=== PATIENT | female | born 1945 | race Caucasian/White ===

== ENCOUNTER 2017-03-20 16:53 | Emergency (ER) | payer MEDICARE, BC ==
[2017-03-20 17:23] VITALS: BP 213/94
--- NOTE | 2017-03-20 17:56 | UC ---
Respiratory Complaint HPI - HPI Summary HPI Summary: The patient comes in today for: 1. Upper respiratory symptoms: Onset: one week ago. Palliative/provocative: Blowing her nose makes her sinus congestion better. Quality: No pain. Region: Upper respiratory Severity: 0/10 Time: Comes and goes. Associated symptoms: Rhinitis: But, it is clear. Sinus congestion: clears with blowing nose. Cough: Productive of clear phlegm, but that has gotten better. Fever: She had this before, last temperature taken today was 100.6 around 2: 15 PM. She took ibuprofen 200 mg at that time. At about 4:15 PM, her temperature was 101.6. This is the highest it has been. Vomiting: none. Diarrhea: None. Body aches: None new. Dysuria: None. * - History of Current Complaint Chief Complaint: UCRespiratory Stated Complaint: FEVER,COUGH,COLD Time Seen by Provider: 03/20/17 17:48 Hx Obtained From: Patient - Allergies/Home Medications Allergies/Adverse Reactions: Allergies Allergy/AdvReac Type Severity Reaction Status Date / Time Codeine Allergy Unknown Verified 02/15/15 22:28 Reaction Details Eggs or Egg-derived Products Allergy Unknown Verified 02/15/15 22:28 Reaction Details Gluten Meal Allergy Unknown Verified 03/20/17 17:24 Reaction Details Meperidine [From Demerol HCl] Allergy Unknown Verified 11/12/15 16:19 Reaction Details Molds & Smuts Allergy Unknown Verified 11/12/15 16:19 Reaction Details Oxycodone Allergy Unknown Verified 11/12/15 16:19 Reaction Details Penicillins Allergy Unknown Verified 02/15/15 22:28 Reaction Details Propoxyphene [From Darvon] Allergy Unknown Verified 11/12/15 16:19 Reaction Details Sulfa Antibiotics Allergy Unknown Verified 02/15/15 22:28 Reaction Details Tramadol Allergy Unknown Verified 11/12/15 16:19 Reaction Details Home Medications: Home Medications Ibuprofen [Advil] 200 mg PO 03/20/17 [History] Magnesium 500 mg PO TID 03/20/17 [History Confirmed 03/20/17] PMH/Surg Hx/FS Hx/Imm Hx Endocrine History Of: Denies: Diabetes, Thyroid Disease, Hyperthyroidism, Hypothyroidism, Dyslipidemia Cardiovascular History Of: Denies: Cardiac Disorders, Hypertension, Pacemaker/ICD, Myocardial Infarction , Congestive Heart Failure, Atrial Fibrillation, Deep Vein Thrombosis, Bleeding Disorders Respiratory History Of: Denies: COPD, Asthma, Bronchitis, Pneumonia, Pulmonary Embolism GI/ History Of: Denies: Gastroesophageal Reflux, Ulcer, Gastrointestinal Bleed, Gall Bladder Disease, Kidney Stones, Diverticulitis, Renal Disease, Urosepsis Neurological History Of: Reports: Migraine - reports hx of migraines from mold spores, states no longer gets migraines Denies: TIA, CVA, Dementia, Seizures Psychological History Of: Reports: Anxiety - On no medications., Depression Denies: Bipolar Disorder, Schizophrenia, Post Traumatic Stress Disorder Cancer History Of: Denies: Lung Cancer, Colorectal Cancer, Breast Cancer, Prostate Cancer, Cervical Cancer Other History Of: Negative For: HIV, Hepatitis B, Hepatitis C, Anticoagulant Therapy - Surgical History Surgical History: Yes Surgery Procedure, Year, and Place: Ovarian cyst, hx of wisdom teeth removal,hx of sebaceous cyst from ear lobe removed. TONSILECTOMY - Family History Known Family History: Negative: Cardiac Disease, Hypertension - Social History Occupation: Retired Alcohol Use: None Substance Use Type: None Smoking Status (MU): Former Smoker - Immunization History Most Recent Influenza Vaccination: never Most Recent Tetanus Shot: 1984 Most Recent Pneumonia Vaccination: never Review of Systems Constitutional: Fever Skin: Negative Eyes: Negative ENT: Nasal Discharge Respiratory: Cough Cardiovascular: Negative Gastrointestinal: Negative Genitourinary: Negative All Other Systems Reviewed And Are Negative: Yes Physical Exam Triage Information Reviewed: Yes Appearance: Well-Appearing, No Pain Distress, Well-Nourished Vital Signs: Initial Vital Signs Temp 99.1 F 03/20/17 17:19 Pulse 82 03/20/17 17:19 Resp 18 03/20/17 17:19 BP 213/94 03/20/17 17:19 Pulse Ox 99 03/20/17 17:19 Vital Signs Reviewed: Yes Eyes: Positive: Conjunctiva Clear. Negative: Discharge ENT: Positive: Hearing grossly normal, Other: - She has bilateral hearing aids. However, there is no erythema or edema of the pinna.. Negative: Pharyngeal erythema, Nasal congestion, Nasal drainage, Tonsillar swelling, Tonsillar exudate Dental: Negative: Gross Decay/Caries @, Dental Fracture @ Neck: Positive: Supple, Nontender, No Lymphadenopathy. Negative: Nuchal Rigidity Respiratory: Positive: Lungs clear, No respiratory distress, No accessory muscle use. Negative: Rhonchi, Wheezing Cardiovascular: Positive: RRR, No Murmur Abdomen Description: Positive: Nontender, No Organomegaly, Soft. Negative: Distended, Guarding Musculoskeletal: Positive: Strength Intact, ROM Intact, No Edema Neurological: Positive: Alert, Muscle Tone Normal Psychological: Positive: Age Appropriate Behavior, Consolable Skin: Negative: rashes, breakdown UC Diagnostic Evaluation - Laboratory O2 Sat by Pulse Oximetry: 99 Respiratory Course/Dx - Differential Dx/Diagnosis Differential Diagnosis/HQI/PQRI: Bronchitis, Laryngitis, Sinusitis Provider Diagnoses: Upper respiratory infection. Viral syndrome Discharge - Discharge Plan Condition: Stable Disposition: HOME Patient Education Materials: Upper Respiratory Infection (ED), Viral Syndrome ( ED) Referrals: Mazin Yung MD [Primary Care Provider] - 1 Week (Please see your primary care provider in about a week to see how well you are doing. If you don't have a primary care provider, please contact the physician referral service. If you can't get in timely, please you may come back to see us until you can. If you get worse, please be seen sooner by us or the ER.)
== END 2017-03-20 18:25 | disposition home or self-care (01) ==
LOC: UCEAST 16:53
DX: J06.9 Acute upper respiratory infection, unspecified (principal); B34.9 Viral infection, unspecified; G43.909 Migraine, unspecified, not intractable, without status migrainosus; F41.9 Anxiety disorder, unspecified; F32.9 Major depressive disorder, single episode, unspecified; Z88.5 Allergy status to narcotic agent; Z88.0 Allergy status to penicillin; Z88.2 Allergy status to sulfonamides; Z91.012 Allergy to eggs
CPT/HCPCS: 99211; G0463

== ENCOUNTER 2021-05-09 09:43 | Inpatient (IN) ==
[2021-05-09] MEDS ORDERED: fentaNYL 100 mcg/2 ml 50 MCG/ML VIAL ONE (10:15)
[2021-05-09] MEDS ORDERED: Midazolam 5 mg/ml concentrated 5 mg/ml 1 ml VIAL ONE (10:19)
[2021-05-09 10:41] LABS: ALT 27 U/L (7-52); AST 27 U/L (13-39); Albumin 3.9 g/dL (3.2-5.2); Albumin/Globulin Ratio 1.4 (1-3); Alkaline Phosphatase 81 U/L (35-149); Blood Urea Nitrogen 17 mg/dL (6-24); CO2 Carbon Dioxide 24 mmol/L (22-32); Calcium 9.1 mg/dL (8.6-10.3); Chloride 91 mmol/L (101-111); EGFR African American 102.1 (>60); EGFR Non-African American 84.4 (>60); Globulin 2.8 g/dL (2-4); Glucose 136 mg/dL (70-100); Magnesium 2.1 mg/dL (1.9-2.7); Sodium 121 mmol/L (135-145); Total Protein 6.7 g/dL (6.4-8.9)
[2021-05-09 10:42] LABS: Troponin I 0.49 ng/mL (<0.03)
[2021-05-09 10:43] LABS: Anion Gap 6 mmol/L (2-11); Potassium 5.5 mmol/L (3.5-5.0)
[2021-05-09 11:00] LABS: Hematocrit 35 % (35-47); Hemoglobin 12.1 g/dL (12.0-16.0); Mean Corpuscular HGB Conc 34 g/dL (31-36); Mean Corpuscular Hemoglobin 28 pg (27-31); Mean Corpuscular Volume 82 fL (80-97); Mean Platelet Volume 6.9 fL (7.4-10.4); Platelet Count 229 10^3/uL (150-450); Red Blood Count 4.31 10^6 /uL (3.70-4.87); Red Cell Distribution Width 17 % (10-15); White Blood Count 8.1 10^3/uL (3.5-10.8)
[2021-05-09] MEDS ORDERED: Dextrose 50% Syringe 50 ml 25 GM/50 ML SYRINGE IV PUSH ONE (11:05)
[2021-05-09] MEDS ORDERED: CALCIUM GLUCONATE 1GM/50ML NS 1 GM/50 ML BAG IV ONE (11:05)
[2021-05-09] MEDS ORDERED: Albuterol 2.5mg/3 ml (0.083%) NEB.SOLN INH ONE (11:05)
[2021-05-09] MEDS ORDERED: Sodium Polystyrene ORAL.SUSP 15 GM/60 ML BTL PO ONE (11:21)
[2021-05-09] MEDS ORDERED: Midazolam 5 mg/5 ml VIAL 1 mg/ml 5 ml VIAL (5 mg) IV SLOW PU ONE (11:42)
[2021-05-09] MEDS ORDERED: fentaNYL 100 mcg/2 ml 50 MCG/ML VIAL IV SLOW PU ONE (11:42)
[2021-05-09 11:53] LABS: ABS Lymphocytes 6.2 10^3/ul (1.0-4.8); ABS Monocytes 0.5 10^3/ul (0-0.8); ABS Neutrophils 1.4 10^3/ul (1.5-7.7); Eosinophil % 0.2 %; Lymphocyte % 75.9 %; Nucleated Red Blood Cells % 0.3
[2021-05-09 16:50] LABS: Potassium 4.3 mmol/L (3.5-5.0); Troponin I 0.33 ng/mL (<0.03)
[2021-05-09] MEDS ORDERED: Al Hydrox/Mg Hydrox/Simet LIQ 30 ML UDC PO PRN (17:28)
[2021-05-09] MEDS ORDERED: Senna TAB 8.6 mg TAB PO PRN (17:37)
[2021-05-09] MEDS ORDERED: Morphine ORAL CONCENTRATE 5 MG/0.25 ML ORAL.SYRIN PO PRN (17:37)
[2021-05-14] MEDS: Polyethylene Glycol 3350 17 GM PACKET PO PRN (08:42)
[2021-05-14] MEDS ORDERED: Morphine ORAL CONCENTRATE 5 MG/0.25 ML ORAL.SYRIN PO PRN (16:34)
[2021-05-15] MEDS: Polyethylene Glycol 3350 17 GM PACKET PO PRN (08:14)
[2021-05-15] MEDS: [UNRECOGNIZED DRUG - REMARK] PO SCH (08:17)
[2021-05-15 10:42] VITALS: BP 196/48
[2021-05-16] MEDS: [UNRECOGNIZED DRUG - REMARK] PO SCH (10:17)
== END 2021-05-16 12:15 | disposition swing bed (61) | DRG 309 ==
LOC: ED 09:43 → MED 17:28
PROVIDERS: ADMIT Internal Medicine; ATTEND Internal Medicine

== ENCOUNTER 2021-05-16 12:12 | Inpatient (IN) ==
[2021-05-16] MEDS: Morphine ORAL CONCENTRATE 5 MG/0.25 ML ORAL.SYRIN PO PRN (20:12)
[2021-05-17 15:58] VITALS: BP 140/60
[2021-05-17] MEDS: Morphine ORAL CONCENTRATE 5 MG/0.25 ML ORAL.SYRIN PO PRN (18:40)
[2021-05-18] MEDS: Morphine ORAL CONCENTRATE 5 MG/0.25 ML ORAL.SYRIN PO PRN ×3 (16:55→21:01)
[2021-05-19] MEDS: Morphine ORAL CONCENTRATE 5 MG/0.25 ML ORAL.SYRIN PO PRN ×3 (00:38→21:29)
[2021-05-19] MEDS: Al Hydrox/Mg Hydrox/Simet LIQ 30 ML UDC PO PRN ×2 (00:49→13:43)
[2021-05-19] MEDS: Polyethylene Glycol 3350 17 GM PACKET PO PRN (13:43)
[2021-05-20] MEDS: Morphine ORAL CONCENTRATE 5 MG/0.25 ML ORAL.SYRIN PO PRN ×3 (07:54→22:15)
[2021-05-21] MEDS: Morphine ORAL CONCENTRATE 5 MG/0.25 ML ORAL.SYRIN PO PRN (06:24)
[2021-05-21] MEDS: Senna TAB 8.6 mg TAB PO PRN (14:28)
[2021-05-24] MEDS: Lidocaine PATCH 5% PATCH TRANSDERM SCH (17:09)
[2021-05-24] MEDS: Lidocaine Patch REMOVE PATCH PATCH OFF SCH (21:49)
[2021-05-24] MEDS: Morphine ORAL CONCENTRATE 5 MG/0.25 ML ORAL.SYRIN PO PRN (22:06)
[2021-05-25] MEDS ORDERED: Lidocaine Patch REMOVE PATCH PATCH OFF ONE (05:00)
[2021-05-25] MEDS: Lidocaine PATCH 5% PATCH TRANSDERM SCH (09:38)
[2021-05-25] MEDS: Lidocaine Patch REMOVE PATCH PATCH OFF SCH (21:07)
[2021-05-26] MEDS: Morphine ORAL CONCENTRATE 5 MG/0.25 ML ORAL.SYRIN PO PRN (01:50)
[2021-05-26] MEDS: Lidocaine PATCH 5% PATCH TRANSDERM SCH (08:03)
[2021-05-26] MEDS: Senna TAB 8.6 mg TAB PO PRN (08:03)
[2021-05-27] MEDS: Lidocaine Patch REMOVE PATCH PATCH OFF SCH ×2 (00:16→22:29)
[2021-05-27] MEDS: Lidocaine PATCH 5% PATCH TRANSDERM SCH (07:43)
[2021-05-28] MEDS: Lidocaine PATCH 5% PATCH TRANSDERM SCH (08:00)
[2021-05-28] MEDS: Lidocaine Patch REMOVE PATCH PATCH OFF SCH (20:26)
[2021-05-29] MEDS: Lidocaine PATCH 5% PATCH TRANSDERM SCH (07:24)
[2021-05-29] MEDS: Lidocaine Patch REMOVE PATCH PATCH OFF SCH (19:49)
[2021-05-30] MEDS: Lidocaine PATCH 5% PATCH TRANSDERM SCH (07:48)
[2021-05-30] MEDS: Lidocaine Patch REMOVE PATCH PATCH OFF SCH (22:00)
[2021-05-31] MEDS: Lidocaine PATCH 5% PATCH TRANSDERM SCH (10:13)
[2021-06-01] MEDS: Lidocaine Patch REMOVE PATCH PATCH OFF SCH ×2 (02:55→22:48)
[2021-06-01] MEDS: Lidocaine PATCH 5% PATCH TRANSDERM SCH (09:45)
[2021-06-02] MEDS: Lidocaine PATCH 5% PATCH TRANSDERM SCH (09:16)
[2021-06-02] MEDS: Lidocaine Patch REMOVE PATCH PATCH OFF SCH (22:03)
[2021-06-03] MEDS: Lidocaine PATCH 5% PATCH TRANSDERM SCH (08:04)
[2021-06-03] MEDS: Lidocaine Patch REMOVE PATCH PATCH OFF SCH (20:44)
[2021-06-04] MEDS: Lidocaine PATCH 5% PATCH TRANSDERM SCH (09:45)
[2021-06-04] MEDS: Senna TAB 8.6 mg TAB PO PRN (17:27)
[2021-06-04] MEDS: Lidocaine Patch REMOVE PATCH PATCH OFF SCH (20:12)
[2021-06-04] MEDS: Morphine ORAL CONCENTRATE 5 MG/0.25 ML ORAL.SYRIN PO PRN (22:54)
[2021-06-05] MEDS: Lidocaine PATCH 5% PATCH TRANSDERM SCH (09:58)
[2021-06-05] MEDS: Lidocaine Patch REMOVE PATCH PATCH OFF SCH (20:29)
[2021-06-06] MEDS: Morphine ORAL CONCENTRATE 5 MG/0.25 ML ORAL.SYRIN PO PRN (03:23)
[2021-06-06] MEDS: Lidocaine PATCH 5% PATCH TRANSDERM SCH (09:47)
[2021-06-06] MEDS: Lidocaine Patch REMOVE PATCH PATCH OFF SCH (21:12)
[2021-06-07] MEDS: Lidocaine PATCH 5% PATCH TRANSDERM SCH (09:48)
[2021-06-07] MEDS: Lidocaine Patch REMOVE PATCH PATCH OFF SCH (21:49)
[2021-06-08] MEDS: Lidocaine PATCH 5% PATCH TRANSDERM SCH (09:00)
[2021-06-08 15:20] LABS: Urine Appearance Clear; Urine Bilirubin Negative (Negative); Urine Blood Negative (Negative); Urine Color Yellow; Urine Glucose Negative (Negative); Urine Ketones 1+ (Negative); Urine Nitrite Negative (Negative); Urine Protein 2+(100 mg/dL) (Negative); Urine Specific Gravity 1.012 (1.002-1.030); Urine Urobilinogen Negative (Negative)
[2021-06-08 15:24] LABS: Urine Bacteria Absent (Absent); Urine Red Blood Cell 1+(3-5/hpf) (Absent); Urine Squamous Epithelial Cell Present (Absent); Urine White Blood Cell Trace(0-5/hpf) (Absent)
[2021-06-08] MEDS: Morphine ORAL CONCENTRATE 5 MG/0.25 ML ORAL.SYRIN PO PRN (16:13)
[2021-06-08] MEDS: Polyethylene Glycol 3350 17 GM PACKET PO PRN (18:18)
[2021-06-08] MEDS: Senna TAB 8.6 mg TAB PO PRN (21:45)
[2021-06-08] MEDS: Lidocaine Patch REMOVE PATCH PATCH OFF SCH (21:49)
[2021-06-09] MEDS: Senna TAB 8.6 mg TAB PO PRN (10:36)
[2021-06-09] MEDS: Lidocaine PATCH 5% PATCH TRANSDERM SCH (10:37)
[2021-06-09] MEDS: Morphine ORAL CONCENTRATE 5 MG/0.25 ML ORAL.SYRIN PO PRN ×2 (10:38→17:58)
[2021-06-10] MEDS: Lidocaine Patch REMOVE PATCH PATCH OFF SCH ×2 (01:43→21:12)
[2021-06-10] MEDS: Lidocaine PATCH 5% PATCH TRANSDERM SCH (08:40)
[2021-06-11] MEDS: Lidocaine PATCH 5% PATCH TRANSDERM SCH (08:59)
[2021-06-11] MEDS: Morphine ORAL CONCENTRATE 5 MG/0.25 ML ORAL.SYRIN PO PRN ×2 (13:11→21:02)
[2021-06-11] MEDS: Lidocaine Patch REMOVE PATCH PATCH OFF SCH (21:16)
[2021-06-12] MEDS: Lidocaine PATCH 5% PATCH TRANSDERM SCH (08:34)
[2021-06-12] MEDS: Morphine ORAL CONCENTRATE 5 MG/0.25 ML ORAL.SYRIN PO PRN ×2 (11:22→13:27)
== END 2021-06-12 14:20 | disposition home or self-care (01) | DRG 65 ==
LOC: MED 13:42
PROVIDERS: ADMIT Internal Medicine; ATTEND Hospitalist

== ENCOUNTER 2021-06-23 18:38 | Inpatient (IN) ==
[2021-06-23 19:22] LABS: Hematocrit 44 % (35-47); Mean Corpuscular HGB Conc 32 g/dL (31-36); Mean Corpuscular Hemoglobin 27 pg (27-31); Mean Corpuscular Volume 84 fL (80-97); Mean Platelet Volume 6.8 fL (7.4-10.4); Platelet Count 572 10^3/uL (150-450); Red Cell Distribution Width 20 % (10-15); White Blood Count 34.6 10^3/uL (3.5-10.8)
[2021-06-23 19:34] LABS: Albumin 3.3 g/dL (3.2-5.2); CO2 Carbon Dioxide 16 mmol/L (22-32); Calcium 8.9 mg/dL (8.6-10.3); Chloride 86 mmol/L (101-111); Magnesium 3.1 mg/dL (1.9-2.7)
[2021-06-23] MEDS ORDERED: NS 0.9% 1000 ml BAG 1,000 ML IV ONE (19:36)
[2021-06-23 19:40] LABS: ALT 13 U/L (7-52); Albumin/Globulin Ratio 1.4 (1-3); Alkaline Phosphatase 66 U/L (35-149); Blood Urea Nitrogen 18 mg/dL (6-24); EGFR African American 45.5 (>60); EGFR Non-African American 37.6 (>60); Globulin 2.3 g/dL (2-4); Glucose 185 mg/dL (70-100); Total Protein 5.6 g/dL (6.4-8.9)
[2021-06-23 19:44] LABS: AST 22 U/L (13-39); Potassium 4.9 mmol/L (3.5-5.0)
[2021-06-23 19:49] LABS: Anion Gap 16 mmol/L (2-11); Sodium 118 mmol/L (135-145); Troponin I 0.04 ng/mL (<0.03)
[2021-06-23 20:17] LABS: ABS Basophils 0.1 10^3/ul (0-0.2); ABS Lymphocytes 13.7 10^3/ul (1.0-4.8); ABS Monocytes 0.4 10^3/ul (0-0.8); ABS Neutrophils 20.4 10^3/ul (1.5-7.7); ABS Nucleated RBC 0.1 10^3/ul; Lymphocyte % 39.6 %; Nucleated Red Blood Cells % 0.2
[2021-06-23] MEDS ORDERED: Iodixanol (CONTRAST) 320 MG/ML 100 ML SDV IV ONE (20:18)
[2021-06-23 20:25] LABS: TSH Ultra Thyroid Stim Horm 5.45 mcIU/mL (0.34-5.60)
[2021-06-23] MEDS ORDERED: Piperacillin/Tazobac ADVAN 3.375 GM in NS 0.9% 100 ml BAG 100 ML IVPB ONE (22:05)
[2021-06-23] MEDS ORDERED: Lactated Ringers 1000 ml BAG 1,000 ML IV SCH (23:00)
[2021-06-23] MEDS ORDERED: Ondansetron 4 mg VIAL 2 MG/ML 2 ml VIAL IV PRN (23:28)
[2021-06-23] MEDS ORDERED: Zosyn per Pharmacy NOTE FOLLOW UP SCH (23:45)
[2021-06-23 23:49] LABS: Urine Appearance Cloudy; Urine Bilirubin Negative (Negative); Urine Blood 2+ (Negative); Urine Color Yellow; Urine Glucose Negative (Negative); Urine Ketones Negative (Negative); Urine Nitrite Negative (Negative); Urine Protein 2+(100 mg/dL) (Negative); Urine Specific Gravity 1.025 (1.002-1.030); Urine Urobilinogen Negative (Negative)
[2021-06-23 23:56] LABS: Urine Bacteria 1+ (Absent); Urine Red Blood Cell 3+(>10/hpf) (Absent); Urine White Blood Cell 3+(>20/hpf) (Absent)
[2021-06-24] MEDS ORDERED: Morphine 2 MG/ML SYRINGE IV PRN (00:14)
[2021-06-24] MEDS ORDERED: Midazolam 5 mg/5 ml VIAL 1 mg/ml 5 ml VIAL (5 mg) ONE (01:08)
[2021-06-24] MEDS ORDERED: Etomidate 20 mg/10 ml 2 MG/ML 10 ml VIAL ONE (01:08)
[2021-06-24] MEDS ORDERED: Ketamine HCL 50 mg/ml 10 ml VIAL (500 MG) ONE (01:08)
[2021-06-24] MEDS ORDERED: Rocuronium 50 mg VIAL 10 mg/ml 5 ml VIAL (50 mg) ONE ×2 (01:08→03:40)
[2021-06-24] MEDS ORDERED: fentaNYL 100 mcg/2 ml 50 MCG/ML VIAL ONE (01:08)
[2021-06-24] MEDS ORDERED: Dexamethasone IV 4 MG/ML VIAL 1 ml VIAL ONE (01:08)
[2021-06-24] MEDS ORDERED: Ondansetron 4 mg VIAL 2 MG/ML 2 ml VIAL ONE (01:08)
[2021-06-24] MEDS ORDERED: Phenylephrine IV 10 MG/ML 1 ml VIAL ONE (01:10)
[2021-06-24] MEDS ORDERED: Bupivacaine 0.25% EPI 200,000 30 ML SDV ONE (01:25)
[2021-06-24] MEDS ORDERED: Midazolam 50 MG VIAL IV DRIP 50 ML IV SCH (05:30)
[2021-06-24] MEDS ORDERED: Lactated Ringers 1000 ml BAG 500 ML IV ONE (05:30)
[2021-06-24] MEDS ORDERED: fentaNYL INFUSION 50 MCG/ML 2,500 MCG/50 ML BAG IV SCH (05:30)
[2021-06-24] MEDS ORDERED: Pantoprazole 80 mg in NS BAG 80 MG/250 ML BAG IV SCH (06:00)
[2021-06-24] MEDS ORDERED: Norepinephrine 16MCG/ML IVPRE 4,000 MCG/250 ML BAG IV SCH (06:00)
[2021-06-24] MEDS: ZOSYN 3.375 GM Q8H per EXTENDED INFUSION IV SCH ×2 (06:30→11:09)
[2021-06-24] MEDS: Lactated Ringers 1000 ml BAG 1,000 ML IV SCH ×2 (07:18→11:48)
[2021-06-24 07:19] LABS: Hematocrit 36 % (35-47); Hemoglobin 12.2 g/dL (12.0-16.0); Mean Corpuscular HGB Conc 34 g/dL (31-36); Mean Corpuscular Hemoglobin 28 pg (27-31); Mean Corpuscular Volume 83 fL (80-97); Mean Platelet Volume 7.3 fL (7.4-10.4); Platelet Count 355 10^3/uL (150-450); Red Blood Count 4.32 10^6 /uL (3.70-4.87); Red Cell Distribution Width 19 % (10-15); White Blood Count 21.7 10^3/uL (3.5-10.8)
[2021-06-24 07:35] LABS: Magnesium 2.6 mg/dL (1.9-2.7)
[2021-06-24] MEDS: Chlorhexidine MOUTHWASH 0.12% 15 ML UDC TOPICAL SCH ×2 (07:43→11:08)
[2021-06-24 07:51] LABS: Troponin I 0.05 ng/mL (<0.03)
[2021-06-24 08:21] LABS: ABS Lymphocytes 11.4 10^3/ul (1.0-4.8); ABS Monocytes 0.2 10^3/ul (0-0.8); ABS Neutrophils 10.1 10^3/ul (1.5-7.7); Eosinophil % 0.1 %; Lymphocyte % 52.3 %; Nucleated Red Blood Cells % 0.1
[2021-06-24] MEDS ORDERED: fentaNYL INFUSION BAG 50MCG/ML 2,500 MCG/50 ML BAG IV SCH (08:34)
[2021-06-24 08:49] LABS: Phosphorus 3.8 mg/dL (2.5-5.0)
[2021-06-24] MEDS ORDERED: Pantoprazole VIAL 40 MG VIAL IV SCH (09:00)
[2021-06-24 09:25] LABS: Albumin 1.9 g/dL (3.2-5.2); CO2 Carbon Dioxide 19 mmol/L (22-32); Calcium 7.4 mg/dL (8.6-10.3); Chloride 94 mmol/L (101-111); Sodium 122 mmol/L (135-145)
[2021-06-24 09:27] LABS: Anion Gap 9 mmol/L (2-11); Potassium 5.1 mmol/L (3.5-5.0)
[2021-06-24 09:31] LABS: ALT 14 U/L (7-52); AST 28 U/L (13-39); Albumin/Globulin Ratio 1.3 (1-3); Alkaline Phosphatase 41 U/L (35-149); Blood Urea Nitrogen 20 mg/dL (6-24); Globulin 1.5 g/dL (2-4); Glucose 102 mg/dL (70-100); Total Protein 3.4 g/dL (6.4-8.9)
[2021-06-24 15:30] VITALS: BP 73/60
== END 2021-06-24 15:22 | disposition expired | DRG 326 ==
LOC: ED 18:38 → ICU 23:28
PROVIDERS: ADMIT Internal Medicine; ATTEND Surgery Surgical Critical Care